=== PATIENT | male | born 1990 | race African-American/Black ===

== ENCOUNTER 2020-02-03 19:16 | Emergency (ER) | payer OTHER ==
[~2020-02-03] VITALS: Ht 182.9 cm; Wt 86.2 kg
[~2020-02-03 19:16] MED LIST: DEPAKOTE ER500 MG PO; ZYPREXA ZYDIS10 MG PO
--- OUTSIDE RECORDS SUMMARY | 2020-02-03 19:20 | XMS ---
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 - 2 Visits in 30 Days CARE PROVIDERS RAYMOND CRAWLEYJAS [facility] Current PHONE: [phone] MICHELLE CRUM [facility] Current PROVIDERS PHONE: Unknown ALEM [facility] PHONE: Unknown Randal has no Care Guidelines for this patient. E.D. VISIT COUNT (12 MO.) [address] [place] [address] JESS Tapia TOTAL 6 NOTE: Visits indicate total known visits. ED/UCC VISIT TRACKING (12 MO.) 02/03/2020 19:17 [facility] [place] TYPE: Emergency COMPLAINT: - ARM PAIN/ALT LOC 02/02/2020 11:24 [facility] [place] TYPE: Emergency DIAGNOSES: - MED REFILL/MENTAL HEALTH 01/19/2020 17:05 [facility] [place] TYPE: Emergency COMPLAINT: - MEDICAL CLEARANCE DIAGNOSES: - Poisoning by other antipsychotics and neuroleptics, intention - Poisoning by other antipsychotics and neuroleptics, intention 01/18/2020 21:18 [facility] [place] TYPE: Emergency DIAGNOSES: - GENERAL MEDICAL - Hallucinations, unspecified - Other stimulant abuse, uncomplicated 10/15/2019 00:22 [facility] TYPE: Emergency DIAGNOSES: - Hematuria, unspecified - Delusional disorders - Urinary tract infection, site not specified - Psychotic Symptoms - Other stimulant abuse, uncomplicated [facility]: [facility] DIAGNOSES: - Encounter for screening, unspecified - Followup Medical Problem INPATIENT VISIT TRACKING (12 MO.) No inpatient visits to display in this time frame [email or web address]
== END 2020-02-03 21:14 | disposition home or self-care (01) ==
LOC: ED 19:16
DX: Z13.30 Encounter for screening examination for mental health and behavioral disorders, unspecified (principal); F17.200 Nicotine dependence, unspecified, uncomplicated
CPT/HCPCS: 80053; 80176; 81001; 84443; 85025; 99283; G0480